=== PATIENT | male | born 1935 | race Caucasian/White ===

== ENCOUNTER → 2022-09-01 09:48 | Outpatient (CLI) | payer MEDICARE, OTHER, SELFPAY ==
--- NOTE | 2022-09-01 | DI.RAD.S_ITS ---
PROCEDURE: FL BARIUM SWALLOW INDICATIONS: dysphagia COMPARISON: None. FINDINGS: Function: There or a few spontaneous episodes of mild tertiary contractions/esophageal spasms. Otherwise, unremarkable esophageal peristalsis. No elicited gastroesophageal reflux. There is abnormal transit of a calibrated barium tablet through the esophagus into the stomach. The barium tablet failed to pass through a area of focal narrowing of the distal esophagus approximately 4 cm proximal to the gastroesophageal junction. The tablet did not pass throughout the duration of the examination. Morphology: Air-contrast images demonstrate normal mucosal morphology. Single contrast views showed focal, persistent distal esophageal narrowing/stricture. No evidence for extrinsic mass effects, or diverticula. Limited images of the stomach demonstrate normal appearance. Small hiatal hernia. IMPRESSION: 1. 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 Recommend further evaluation with gastroenterology consultation. 2. A few episodes of tertiary contractions/esophageal spasms. Dictated by: Tanvir Torres M.D. on 09/01/2022 at 13:55 Approved by: Tanvir Torres M.D. on 09/01/2022 at 14:00
== END ==
PROVIDERS: PCP Family Medicine; Referring Provider Family Medicine; Visit Provider Family Medicine
DX: K22.2 Esophageal obstruction (principal); R13.10 Dysphagia, unspecified
CPT/HCPCS: 74220